=== PATIENT | female | born 1950 | race African-American/Black ===

== ENCOUNTER 2023-09-11 07:51 | Inpatient (IN) | payer MEDICARE ==
[~2023-09-11] VITALS: Ht 160 cm; Wt 94.8 kg
[2023-09-11 08:18] LABS: Basophils # (auto) 0 10 ^3/uL (0-0.2); Eosinophils # (auto) 0 10 ^3/uL (0-0.8); Mean Corpuscular Volume 101.7 fL (80.0-100.0); Monocytes # (auto) 0.6 10 ^3/uL (0-1.3); Nucleated Red Blood Cells % 0.1 %
[2023-09-11 08:21] LABS: Basophils % (auto) 0.3 % (0.0-2.0); Eosinophils % (auto) 0.1 % (0.0-7.0); Hemoglobin 12.6 g/dL (12.2-16.2); Lymphocytes # (auto) 1.2 10 ^3/uL (0.4-5.4); Mean Corpuscular Hemoglobin 33.7 pg (28.0-32.0); Mean Corpuscular Hgb Conc. 33.2 g/dL (32.0-36.0); Monocytes % (auto) 7.2 % (0.0-12.0); Neutrophils # (auto) 6.6 10 ^3/uL (1.6-8.6); Neutrophils % (auto) 78.4 % (37.0-80.0); Red Blood Cells 3.74 10^6/uL (4.0-5.20); Red Cell Distribution Width 19.8 % (11.8-14.3); White Blood Cell 8.4 10^3/uL (4.4-10.8)
[2023-09-11 08:32] LABS: INR 1.06 (0.9-1.15); Partial Thromboplastin Time 30.3 SEC (24.5-34.5); Prothrombin Time 11.1 sec (9.3-11.8)
[2023-09-11 08:37] LABS: Alanine Aminotransferase 18 U/L (7-40); Albumin 4.2 g/dL (3.2-4.8); Alkaline Phosphatase 98 U/L (46-116); Anion Gap 8 (5-15); Aspartate Aminotransferase 22 U/L (13-40); BUN/Creatinine Ratio 11.8 (10.0-20.0); Blood Urea Nitrogen 15 mg/dL (9-23); Carbon Dioxide 25 mmol/L (20-30); Chloride 101 mmol/L (98-107); Glucose 112 mg/dL (74-106); Magnesium 1.7 mg/dL (1.6-2.6); Potassium 3.5 mmol/L (3.5-5.1); Sodium 134 mmol/L (136-145)
[2023-09-11 08:38] LABS: Bilirubin, Total 0.8 mg/dL (0.2-1.0); Total Protein 7.4 g/dL (5.7-8.2)
[2023-09-11] MEDS ORDERED: levoFLOXacin 500MG 100 ML IV ONE (08:45)
[2023-09-11] MEDS ORDERED: ONDANSETRON HCL 4 MG/2 ML VIAL IV ONE (11:15)
[2023-09-11] MEDS ORDERED: MORPHINE SULFATE INJ 2 MG/ml SYRG IV ONE (11:15)
[2023-09-11] MEDS ORDERED: ONDANSETRON HCL 4 MG/2 ML VIAL IV PRN (12:45)
[2023-09-11] MEDS ORDERED: NITROGLYCERIN 0.4 MG SL TAB SL PRN (12:45)
[2023-09-11] MEDS ORDERED: MORPHINE SULFATE 4 MG/ML SYR/VIAL IV PRN (12:45)
[2023-09-11] MEDS: SODIUM CHLORIDE 0.9% 1,000 ML IV SCH (13:15)
[2023-09-11 14:17] LABS: Triglycerides 110 mg/dL (< 150)
[2023-09-11 14:18] LABS: LDL Cholesterol 126 mg/dL (< 100)
[2023-09-11 14:19] LABS: Cholesterol 232 mg/dL (< 200); HDL Cholesterol 82 mg/dL (40-59)
[2023-09-11 14:41] LABS: INR 1.06 (0.9-1.15); Prothrombin Time 11.1 sec (9.3-11.8)
[2023-09-11 16:51] LABS: Creatinine, Urine 157.34 mg/dL (30.0-125.0)
[2023-09-11] MEDS ORDERED: FUROSEMIDE 20 MG/2 ML VIAL IV SCH (18:00)
[2023-09-11 19:04] LABS: Urine Bacteria NONE SEEN /hpf (None Seen); Urine Blood Negative /uL (Negative); Urine Clarity Clear (Clear); Urine Color Yellow (Yellow); Urine Protein, UAD 1+ (Negative); Urine Specific Gravity 1.018 (1.001-1.035); Urine Urobilinogen Normal (Negative); Urine WBC 1 /hpf (0 - 5)
[2023-09-11 19:27] VITALS: PULSE 99; RESP 20; O2SAT 96
[2023-09-11 20:00] VITALS: PULSE 99; RESP 18; O2SAT 98
[2023-09-11] MEDS ORDERED: METOPROLOL TARTRATE 25 MG TAB PO SCH (22:00)
[2023-09-11] MEDS ORDERED: ENOXAPARIN SOD 100 MG/1 ML SYRINGE SC SCH (22:00)
[2023-09-11] MEDS: METOPROLOL TARTRATE 25 MG TAB PO SCH (23:32)
[2023-09-11] MEDS: ATORVASTATIN 20 MG TAB PO SCH (23:32)
[2023-09-12] VITALS (9 sets, daily range): BP systolic 96–153; BP diastolic 56–81; PULSE 68–92; RESP 17–20; TEMP 97.9–101; O2SAT 95–100
[2023-09-12] MEDS ORDERED: ACETAMINOPHEN 500 MG TAB PO ONE (00:30)
[2023-09-12] MEDS: SODIUM CHLORIDE 0.9% 1,000 ML IV SCH ×2 (03:18→17:23)
[2023-09-12 07:02] LABS: Basophils # (auto) 0 10 ^3/uL (0-0.2); Basophils % (auto) 0.4 % (0.0-2.0); Eosinophils # (auto) 0 10 ^3/uL (0-0.8); Hemoglobin 11.9 g/dL (12.2-16.2); Monocytes # (auto) 0.8 10 ^3/uL (0-1.3); Neutrophils # (auto) 5.6 10 ^3/uL (1.6-8.6)
[2023-09-12 07:05] LABS: Eosinophils % (auto) 0.2 % (0.0-7.0); Hematocrit 36.5 % (36.0-46.0); Lymphocytes # (auto) 1.3 10 ^3/uL (0.4-5.4); Mean Corpuscular Hemoglobin 33.9 pg (28.0-32.0); Mean Corpuscular Hgb Conc. 32.5 g/dL (32.0-36.0); Mean Corpuscular Volume 104.4 fL (80.0-100.0); Monocytes % (auto) 10.1 % (0.0-12.0); Neutrophils % (auto) 72.3 % (37.0-80.0); Nucleated Red Blood Cells % 0.1 %; Red Blood Cells 3.49 10^6/uL (4.0-5.20); Red Cell Distribution Width 19.6 % (11.8-14.3); White Blood Cell 7.7 10^3/uL (4.4-10.8)
[2023-09-12 07:21] LABS: Alanine Aminotransferase 10 U/L (7-40); Albumin 3.8 g/dL (3.2-4.8); Alkaline Phosphatase 81 U/L (46-116); Anion Gap 8 (5-15); Aspartate Aminotransferase 27 U/L (13-40); BUN/Creatinine Ratio 9.9 (10.0-20.0); Blood Urea Nitrogen 11 mg/dL (9-23); Calcium 8.4 mg/dL (8.7-10.4); Carbon Dioxide 24 mmol/L (20-30); Chloride 102 mmol/L (98-107); Glucose 93 mg/dL (74-106); Potassium 3.6 mmol/L (3.5-5.1); Sodium 134 mmol/L (136-145)
[2023-09-12 07:22] LABS: Bilirubin, Total 0.7 mg/dL (0.2-1.0)
[2023-09-12] MEDS: ENOXAPARIN SOD 40 MG/0.4 ML SYRINGE SC SCH (09:48)
[2023-09-12] MEDS: levoFLOXacin 500MG 100 ML IV SCH (09:48)
[2023-09-12] MEDS: ASPirin 81 mg TAB PO SCH (09:49)
[2023-09-12] MEDS: DOCUSATE SOD 100 MG CAP PO SCH (09:50)
[2023-09-12] MEDS: METOPROLOL TARTRATE 25 MG TAB PO SCH ×2 (09:55→21:49)
[2023-09-12] MEDS: ATORVASTATIN 20 MG TAB PO SCH (21:48)
[2023-09-12] MEDS: ACETAMINOPHEN 325 MG TAB PO PRN (21:49)
[2023-09-13] VITALS (8 sets, daily range): BP systolic 128–155; BP diastolic 60–106; PULSE 73–91; RESP 18–22; TEMP 97.4–100.9; O2SAT 93–98
[2023-09-13] MEDS: SODIUM CHLORIDE 0.9% 1,000 ML IV SCH (05:15)
[2023-09-13] MEDS: ACETAMINOPHEN 325 MG TAB PO PRN ×3 (05:53→21:37)
[2023-09-13] MEDS ORDERED: POM PO (08:23)
[2023-09-13] MEDS: DOCUSATE SOD 100 MG CAP PO SCH (10:00)
[2023-09-13] MEDS: ASPirin 81 mg TAB PO SCH (10:00)
[2023-09-13] MEDS: ENOXAPARIN SOD 40 MG/0.4 ML SYRINGE SC SCH (11:02)
[2023-09-13] MEDS: levoFLOXacin 500MG 100 ML IV SCH (11:02)
[2023-09-13] MEDS: METOPROLOL TARTRATE 25 MG TAB PO SCH ×2 (11:02→21:35)
[2023-09-13] MEDS: ATORVASTATIN 20 MG TAB PO SCH (21:35)
[2023-09-14] VITALS (9 sets, daily range): BP systolic 119–154; BP diastolic 46–78; PULSE 69–103; RESP 17–19; TEMP 97.7–100.3; O2SAT 92–99
[2023-09-14 09:17] LABS: Hepatitis B Surface Antigen Negative (Negative)
[2023-09-14 09:38] LABS: Hepatitis C Antibody Negative (Negative)
[2023-09-14] MEDS: levoFLOXacin 500MG 100 ML IV SCH (09:48)
[2023-09-14] MEDS: ENOXAPARIN SOD 40 MG/0.4 ML SYRINGE SC SCH (09:48)
[2023-09-14] MEDS: ACETAMINOPHEN 325 MG TAB PO PRN ×3 (09:49→22:19)
[2023-09-14] MEDS: ASPirin 81 mg TAB PO SCH (09:49)
[2023-09-14] MEDS: DOCUSATE SOD 100 MG CAP PO SCH (09:50)
[2023-09-14] MEDS: METOPROLOL TARTRATE 25 MG TAB PO SCH ×2 (09:50→22:19)
[2023-09-14] MEDS: CABOZANTINIB 40 MG PO SCH (11:34)
[2023-09-14] MEDS ORDERED: IOHEXOL 300 MG/ML 100ML BOTTLE IJ ONE (13:11)
[2023-09-14 14:30] LABS: Chloride 103 mmol/L (98-107); Potassium 3.5 mmol/L (3.5-5.1); Sodium 135 mmol/L (136-145)
[2023-09-14 14:31] LABS: Anion Gap 8 (5-15); Calcium 8.4 mg/dL (8.5-10.1); Carbon Dioxide 24 mmol/L (20-30)
[2023-09-14 14:36] LABS: Blood Urea Nitrogen 7 mg/dL (9-23); Glucose 95 mg/dL (74-106)
[2023-09-14 14:47] LABS: BUN/Creatinine Ratio 7.6 (10.0-20.0)
[2023-09-14] MEDS: hydrALAZINE HCL 20 MG/ML VL IV PRN (17:27)
[2023-09-14] MEDS: ATORVASTATIN 20 MG TAB PO SCH (22:20)
[2023-09-15] VITALS (7 sets, daily range): BP systolic 128–154; BP diastolic 69–83; PULSE 73–92; RESP 16–20; TEMP 97.9–99; O2SAT 95–97
[2023-09-15 02:29] LABS: COVID19 ANTIGEN SOFIA FIA NEGATIVE (NEGATIVE); Rapid Influenza A Negative (Negative); Rapid Influenza B Negative (Negative)
[2023-09-15 06:10] LABS: Basophils # (auto) 0 10 ^3/uL (0-0.2); Eosinophils # (auto) 0 10 ^3/uL (0-0.8); Hemoglobin 11.1 g/dL (12.2-16.2); Lymphocytes # (auto) 0.9 10 ^3/uL (0.4-5.4); Monocytes # (auto) 0.6 10 ^3/uL (0-1.3); Neutrophils # (auto) 3.4 10 ^3/uL (1.6-8.6); White Blood Cell 4.9 10^3/uL (4.4-10.8)
[2023-09-15 06:13] LABS: Basophils % (auto) 0.3 % (0.0-2.0); Eosinophils % (auto) 0.3 % (0.0-7.0); Hematocrit 33.6 % (36.0-46.0); Lymphocytes % (auto) 17.8 % (10.0-50.0); Mean Corpuscular Hemoglobin 34.1 pg (28.0-32.0); Mean Corpuscular Volume 103.3 fL (80.0-100.0); Monocytes % (auto) 11.9 % (0.0-12.0); Neutrophils % (auto) 69.7 % (37.0-80.0); Red Blood Cells 3.25 10^6/uL (4.0-5.20); Red Cell Distribution Width 18.9 % (11.8-14.3)
[2023-09-15 06:45] LABS: Alanine Aminotransferase 13 U/L (7-40); Albumin 3.6 g/dL (3.2-4.8); Alkaline Phosphatase 75 U/L (46-116); Anion Gap 8 (5-15); Aspartate Aminotransferase 29 U/L (13-40); BUN/Creatinine Ratio 6.3 (10.0-20.0); Blood Urea Nitrogen 6 mg/dL (9-23); Calcium 8.1 mg/dL (8.7-10.4); Carbon Dioxide 22 mmol/L (20-30); Chloride 104 mmol/L (98-107); Glucose 95 mg/dL (74-106); Potassium 3.6 mmol/L (3.5-5.1); Sodium 134 mmol/L (136-145)
[2023-09-15 06:46] LABS: Bilirubin, Total 0.6 mg/dL (0.2-1.0); Total Protein 6.7 g/dL (5.7-8.2)
[2023-09-15] MEDS ORDERED: HYDROcodone-ACET 5/325MG TAB PO PRN (09:00)
[2023-09-15] MEDS ORDERED: traMADol HCL 50 MG TAB PO PRN (09:15)
[2023-09-15] MEDS: METOPROLOL TARTRATE 25 MG TAB PO SCH (09:17)
[2023-09-15] MEDS: ENOXAPARIN SOD 40 MG/0.4 ML SYRINGE SC SCH (09:18)
[2023-09-15] MEDS: ASPirin 81 mg TAB PO SCH (09:19)
[2023-09-15] MEDS: DOCUSATE SOD 100 MG CAP PO SCH (09:19)
[2023-09-15] MEDS: levoFLOXacin 500MG 100 ML IV SCH (09:21)
[2023-09-15] MEDS: ACETAMINOPHEN 325 MG TAB PO PRN ×2 (10:14→18:38)
[2023-09-15] MEDS: CABOZANTINIB 40 MG PO SCH (10:15)
[2023-09-15] MEDS: hydrALAZINE HCL 20 MG/ML VL IV PRN (16:37)
[2023-09-16] MEDS: ATORVASTATIN 20 MG TAB PO SCH (02:02)
[2023-09-16] MEDS: METOPROLOL TARTRATE 25 MG TAB PO SCH ×2 (02:03→10:11)
[2023-09-16 03:31] VITALS: BP 158/76; PULSE 85; RESP 18; TEMP 98.6; O2SAT 94
[2023-09-16 08:00] VITALS: PULSE 71; PULSE 78; RESP 18; O2SAT 97
[2023-09-16 09:00] VITALS: BP 131/51; PULSE 82; RESP 17; TEMP 99.8; O2SAT 92
[2023-09-16] MEDS: DOCUSATE SOD 100 MG CAP PO SCH (10:00)
[2023-09-16] MEDS: ENOXAPARIN SOD 40 MG/0.4 ML SYRINGE SC SCH (10:09)
[2023-09-16] MEDS: ACETAMINOPHEN 325 MG TAB PO PRN (10:09)
[2023-09-16] MEDS: levoFLOXacin 500MG 100 ML IV SCH (10:10)
[2023-09-16] MEDS: ASPirin 81 mg TAB PO SCH (10:11)
[2023-09-16] MEDS: CABOZANTINIB 40 MG PO SCH (10:12)
[2023-09-16] MEDS ORDERED: MET25T PO (11:27)
[2023-09-16] MEDS ORDERED: HYDR1TAB97 PO (11:27)
[2023-09-16 13:00] VITALS: BP 104/52; PULSE 70; RESP 17; TEMP 98.8; O2SAT 100
[2023-09-16 16:47] VITALS: BP 131/62; PULSE 77; TEMP 37.1
[2023-09-16 17:00] VITALS: BP 130/40; PULSE 74; RESP 19; TEMP 98.1; O2SAT 99
== END 2023-09-16 19:00 | disposition home or self-care (01) | DRG 543 ==
LOC: ER 07:51 → TELE 12:54 → TELE-EAST 23:12
PROVIDERS: ADMIT Nurse Practitioner Family; ATTEND Internal Medicine Geriatric Medicine
DX: M84.58XA Pathological fracture in neoplastic disease, other specified site, initial encounter for fracture (principal); C64.9 Malignant neoplasm of unspecified kidney, except renal pelvis; C79.51 Secondary malignant neoplasm of bone; N17.9 Acute kidney failure, unspecified; I24.9 Acute ischemic heart disease, unspecified; E78.2 Mixed hyperlipidemia; E66.9 Obesity, unspecified; E86.9 Volume depletion, unspecified; Z20.822 Contact with and (suspected) exposure to COVID-19; N18.2 Chronic kidney disease, stage 2 (mild); I12.9 Hypertensive chronic kidney disease with stage 1 through stage 4 chronic kidney disease, or unspecified chronic kidney disease; Z88.5 Allergy status to narcotic agent; Z88.0 Allergy status to penicillin; Z79.899 Other long term (current) drug therapy; Z92.21 Personal history of antineoplastic chemotherapy; Z85.528 Personal history of other malignant neoplasm of kidney; Z68.37 Body mass index [BMI] 37.0-37.9, adult; Z83.3 Family history of diabetes mellitus; Z90.5 Acquired absence of kidney
CPT/HCPCS: 36415; 71045; 71275; 74178; 78582; 80048; 80053; 80061; 81001; 82570; 83605; 83690; 83735; 84300; 84484; 85025; 85379; 85610; 85730; 86803; 87040; 87070; 87077; 87205; 87340; 87426; 87493; 87804; 93005; 93306; 96365; 96375; 97110; 97116; 97163; 97530; G0378; J1956; J2405

== ENCOUNTER 2023-12-16 12:33 | Emergency (ER) | payer MEDICARE ==
[~2023-12-16] VITALS: Ht 160 cm; Wt 87.4 kg
[2023-12-16 12:33] VITALS: BP 146/70; RESP 16; O2SAT 97
[~2023-12-16 12:33] MED LIST: HYDR1TAB97 PO; MET25T PO
[2023-12-16 12:56] LABS: Basophils # (auto) 0 10 ^3/uL (0-0.2); Eosinophils # (auto) 0.1 10 ^3/uL (0-0.8); Eosinophils % (auto) 1.1 % (0.0-7.0); Neutrophils # (auto) 3.8 10 ^3/uL (1.6-8.6); Red Blood Cells 3.79 10^6/uL (4.0-5.20)
[2023-12-16 12:58] LABS: Basophils % (auto) 0.6 % (0.0-2.0); Hemoglobin 13.2 g/dL (12.2-16.2); Lymphocytes # (auto) 1.8 10 ^3/uL (0.4-5.4); Lymphocytes % (auto) 28.8 % (10.0-50.0); Mean Corpuscular Hemoglobin 34.8 pg (28.0-32.0); Mean Corpuscular Volume 105.6 fL (80.0-100.0); Monocytes # (auto) 0.6 10 ^3/uL (0-1.3); Monocytes % (auto) 8.8 % (0.0-12.0); Neutrophils % (auto) 60.7 % (37.0-80.0); Nucleated Red Blood Cells % 0.2 %; Red Cell Distribution Width 16.3 % (11.8-14.3); White Blood Cell 6.3 10^3/uL (4.4-10.8)
[2023-12-16 13:11] LABS: Alanine Aminotransferase 15 U/L (7-40); Albumin 4.4 g/dL (3.2-4.8); Alkaline Phosphatase 97 U/L (46-116); Anion Gap 10 (5-15); Aspartate Aminotransferase 18 U/L (13-40); BUN/Creatinine Ratio 17.2 (10.0-20.0); Bilirubin, Total 0.5 mg/dL (0.2-1.0); Blood Urea Nitrogen 21 mg/dL (9-23); Calcium 10.1 mg/dL (8.5-10.1); Carbon Dioxide 24 mmol/L (20-30); Chloride 107 mmol/L (98-107); Glucose 100 mg/dL (74-106); Potassium 4.3 mmol/L (3.5-5.1); Sodium 141 mmol/L (136-145); Total Protein 7.3 g/dL (5.7-8.2)
[2023-12-16 16:28] VITALS: PULSE 84
== END 2023-12-16 20:45 | disposition home or self-care (01) ==
LOC: ER 12:37
DX: R51.9 Headache, unspecified (principal); I10 Essential (primary) hypertension; Z98.51 Tubal ligation status; Z88.0 Allergy status to penicillin; Z88.6 Allergy status to analgesic agent; Z87.891 Personal history of nicotine dependence
CPT/HCPCS: 36415; 70450; 71045; 80053; 84484; 85025; 93005